=== PATIENT | female | born 1990 | race Caucasian/White ===

== ENCOUNTER 2016-11-21 14:34 | Emergency (ER) | payer OTHER, BC ==
--- NOTE | 2016-11-21 15:03 | ED ---
General Adult HPI - General Chief complaint: Dizziness Stated complaint: Near Syncope Time Seen by Provider: 11/21/16 14:43 Source: EMS, RN notes reviewed, old records reviewed Mode of arrival: EMS Limitations: no limitations - History of Present Illness Initial comments: This is a 26-year-old female year with possible hydrocarbon or monoxide exposure. Patient coming in as part of people with episode of headaches lightheadedness dizziness. Patient experienced symptoms at work, patient does work for [employer] and does have possible exposures during the shift. Patient also had 2 fellow employees who had similar symptoms. Patient is over the sinuses that she feels better, exposures an hour and a half after prior to ER arrival. Patient herself denies any other medical issues according vannesa takes no medications has no headache chest pain shortness of breath or abdominal pain, no possibility of - Related Data Home Medications Medication Instructions Recorded Confirmed Mirena 11/21/16 Allergies Allergy/AdvReac Type Severity Reaction Status Date / Time No Known Allergies Allergy Verified 11/21/16 14:42 Review of Systems ROS Statement: Those systems with pertinent positive or pertinent negative responses have been documented in the HPI. ROS Other: All systems not noted in ROS Statement are negative. Past Medical History Past Medical History: No Reported History History of Any Multi-Drug Resistant Organisms: None Reported Past Surgical History: Appendectomy Past Psychological History: No Psychological Hx Reported Smoking Status: Never smoker Past Alcohol Use History: Occasional Past Drug Use History: None Reported General Exam Limitations: no limitations General appearance: alert, in no apparent distress Head exam: Present: atraumatic, normocephalic, normal inspection Eye exam: Present: normal appearance, PERRL, EOMI. Absent: scleral icterus, conjunctival injection, periorbital swelling ENT exam: Present: normal exam, mucous membranes moist Neck exam: Present: normal inspection. Absent: tenderness, meningismus, lymphadenopathy Respiratory exam: Present: normal lung sounds bilaterally. Absent: respiratory distress, wheezes, rales, rhonchi, stridor Cardiovascular Exam: Present: regular rate, normal rhythm, normal heart sounds. Absent: systolic murmur, diastolic murmur, rubs, gallop, clicks GI/Abdominal exam: Present: soft, normal bowel sounds. Absent: distended, tenderness, guarding, rebound, rigid Extremities exam: Present: normal inspection, full ROM, normal capillary refill. Absent: tenderness, pedal edema, joint swelling, calf tenderness Back exam: Present: normal inspection Neurological exam: Present: alert, oriented X3, CN II-XII intact Psychiatric exam: Present: normal affect, normal mood Skin exam: Present: warm, dry, intact, normal color. Absent: rash Course Vital Signs 11/21/16 11/21/16 14:38 15:50 Temperature 98.2 F 97 F L Pulse Rate 76 86 Respiratory 18 20 Rate Blood Pressure 144/78 129/87 O2 Sat by Pulse 100 100 Oximetry - Reevaluation(s) Reevaluation #1: 11/21/16 15:55 Patient was placed on nonrebreather Rott nonrebreather upon arrival to emergency room, after about an hour or so on nonrebreather patient's symptoms continue to remain resolved EKG Findings - EKG Comments: EKG Findings:: G shows possible ectopic rhythm rate of 72, WA 156, QRS 98, QTc 442 Medical Decision Making - Medical Decision Making Wi-Fi female to ER for possible evaluation of hydrocarbon exposure. At this time patient's a symptomatic, chemistry discharged home and return with any symptoms, headache, shortness of breath, dizziness weakness syncope Disposition Clinical Impression: Near syncope, Toxic effect of hydrocarbon gas Disposition: HOME SELF-CARE Condition: Good Instructions: Near Syncope (ED) Referrals: Shadi Dhillon III, MD [Primary Care Provider] - 1-2 days
[2016-11-21 15:51] VITALS: BP 129/87; PULSE 86; RESP 20; TEMP 97
== END 2016-11-21 16:22 | disposition home or self-care (01) ==
LOC: EC 14:34
DX: R55 Syncope and collapse (principal); Z77.118 Contact with and (suspected) exposure to other environmental pollution; Z57.4 Occupational exposure to toxic agents in agriculture
CPT/HCPCS: 93005; 99284

== ENCOUNTER → 2018-01-25 | Outpatient (CLI) | payer BC ==
--- NOTE | 2018-01-25 12:37 | MR ---
EXAMINATION TYPE: MR brain wo con DATE OF EXAM: 01/25/2018 11:17 AM COMPARISON: NONE HISTORY: Memory loss Multiplanar and multispin-echo imaging of the brain was performed . The ventricles, basal cisterns and sulci overlying the cerebral convexities are within normal limits. There is no evidence for midline shift or mass effect. Acute intracranial hemorrhage or extra-axial collection is not evident. The brain parenchyma reveals no abnormal increased signal. No acute edema is identified. The mastoid air cells are well-aerated. Mucous retention cysts of the maxillary sinuses. IMPRESSION: Unremarkable MRI of the brain.Mucous retention cysts of the maxillary sinuses.
== END | disposition home or self-care (01) ==
LOC: RADMRIMAIN 10:37
PROVIDERS: ATTEND Psychiatry & Neurology Neurology
DX: R41.3 Other amnesia (principal)
CPT/HCPCS: 70551

== ENCOUNTER 2018-11-07 12:26 | Emergency (ER) | payer BC ==
[2018-11-07] MEDS ORDERED: ACETAMINOPHEN TAB 325 MG TAB PO STA (14:35)
--- NOTE | 2018-11-07 14:44 | ED ---
General Adult HPI - General Chief complaint: Neck Pain/Injury Stated complaint: pinched nerve Source: patient, RN notes reviewed, old records reviewed Mode of arrival: ambulatory Limitations: no limitations - History of Present Illness Initial comments: 28-year-old female patient with no pertinent past medical history presents to ED with approximately 6 months of cervical spinal pain. Patient states that this issue first began bothering her proximal 6 months ago when she has pain in her neck and numbness that radiates down her left arm. Patient was evaluated by urgent care and told that she may have a possible pinched nerve. Patient states that she received anti-inflammatories from the urgent care and her symptoms resolved until approximately 5 weeks ago. Patient states that for 5 weeks she has had achy exacerbation with pain in her neck radiates and numbness radiating down her left arm. Patient denies any fall, trauma, significant injury to her back or neck and history. Patient states that the symptoms wax and wane. Patient has a appointment with her primary care physician next week, presents to the ED primarily for symptom control. Patient denies any nuchal rigidity, patient states that the pain is not worse with movement. Patient denies headache, photophobia, fever chills. Patient denies chest pain, shortness of breath, heart palpitations, abdominal pain, nausea vomiting diarrhea. Patient does not believe that she may be because she uses control for contraception. Patient denies any other symptoms. Systemic: Pt denies fatigue, myalgia, fever/chills, rash. Pt denies weakness, night sweats, weight loss. Neuro: Pt denies headache, visual disturbances, syncope or pre-syncope. HEENT: Pt denies ocular discharge or irritation, otalgia, rhinorrhea, pharyngitis or notable lymphadenopathy. Cardiopulmonary: Pt denies chest pain, SOB, heart palpitations, dyspnea on exertion. Abdominal/GI: Pt denies abdominal pain, n/v/d. : Pt denies dysuria, burning w/ urination, frequency/urgency. Denies new onset urinary or bowel incontinence. MSK: Pt denies myalgia, loss of strength or function in extremities. Neuro: Pt denies new onset weakness. - Related Data Home Medications Medication Instructions Recorded Confirmed Mirena 11/21/16 Previous Rx's Medication Instructions Recorded Cyclobenzaprine [Flexeril] 10 mg PO TID #20 tab 11/07/18 RX: Ibuprofen [Motrin] 600 mg PO Q6HR PRN #40 day 11/07/18 Allergies Allergy/AdvReac Type Severity Reaction Status Date / Time No Known Allergies Allergy Verified 11/07/18 13:42 Review of Systems ROS Statement: Those systems with pertinent positive or pertinent negative responses have been documented in the HPI. ROS Other: All systems not noted in ROS Statement are negative. Past Medical History Past Medical History: No Reported History History of Any Multi-Drug Resistant Organisms: None Reported Past Surgical History: Appendectomy Past Psychological History: No Psychological Hx Reported Smoking Status: Never smoker Past Alcohol Use History: Occasional Past Drug Use History: None Reported General Exam - General Exam Comments Initial Comments: Constitutional: NAD, AOX3, Pt has pleasant affect. HEENT: NC/AT, trachea midline, neck supple, no lymphadenopathy. Posterior pharynx non erythematous, without exudates. External ears appear normal, without discharge. Mucous membranes moist. Eyes PERRLA, EOM intact. There is no scleral icterus. No pallor noted. Cardiopulmonary: RRR, no murmurs, rubs or gallops, no JVD noted. Lungs CTAB in anterior and posterior darling. No peripheral edema. Abdominal exam: Abdomen soft and non-distended. Abdomen non-tender to palpation in all 4 quadrants. Bowel sounds active in LLQ. No hepatosplenomegaly. No ecchymosis Neuro: CN II-XII intact. No nuchal rigidity. Kernig's and Brudzinski's negative. MSK: 5 out of 5 strength in biceps, triceps. Full active range of motion of upper extremities. Sensation intact. Radial pulse +2 bilaterally. Patient ambulatory. No posterior calf tenderness bilaterally, homans sign negative bilaterally. Posterior tibialis and radial pulse +2 bilaterally. Sensation intact in upper and lower extremities. Full active ROM in upper and lower extremities, 5/5 strength. Limitations: no limitations Course Vital Signs 11/07/18 11/07/18 13:42 15:59 Temperature 98 F 97.8 F Pulse Rate 81 67 Respiratory 16 18 Rate Blood Pressure 122/77 118/70 O2 Sat by Pulse 100 100 Oximetry Medical Decision Making - Medical Decision Making 28-year-old female patient with no pertinent past medical history presents to ED with approximately 6 months of cervical spinal pain. Patient states that this issue first began bothering her for approximately 6 months ago, when she began to experience pain in her neck and numbness that radiates down her left arm. Patient was evaluated by urgent care and told that she may have a possible pinched nerve. Patient states that she received anti-inflammatories from the urgent care and her symptoms resolved until approximately 5 weeks ago. Patient states that for 5 weeks she has had achy exacerbation with pain in her neck radiates and numbness radiating down her left arm. Patient denies any fall, trauma, significant injury to her back or neck and history. Patient states that the symptoms wax and wane. Patient has a appointment with her primary care physician next week, presents to the ED primarily for symptom control. Patient denies any nuchal rigidity, patient states that the pain is not worse with movement. Patient denies headache, photophobia, fever chills. Physical exam did not display any acute pathology. Patient upper extremities neurovascularly intact, sensation intact, 5 out of 5 strength, radial pulse +2 bilaterally. Neuro exam was within normal limits. No nuchal rigidity, Kernig' s and Brudzinski's negative. Plain film of cervical spine displayed no malignant or acute osseous abnormality seen. No bony spondylytic neural for minimal narrowing on either side. The T2 vertebral bodies visualized above the level of her clavicles. 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 Patient additionally had an EKG that was not suspicious for acute ischemia. UA was not impressive, negative hCG. These findings were explained to patient at length. Patient verbalized understanding. Patient has an appointment with her primary care physician next week which she will tend to undergo further evaluations. Patient prescribed Motrin and Flexeril from ED to control her symptoms. Patient given orthopedic referral that she may contact if symptoms persist or worsen. Case discussed with Dr. Hoskins. - Lab Data Lab Results 11/07/18 11/07/18 Range/Units 15:02 15:02 Urine Color Colorless Urine Appearance Clear (Clear) Urine pH 6.5 (5.0-8.0) Ur Specific Manning 1.006 (1.001-1.035) Urine Protein Negative (Negative) Urine Glucose (UA) Negative (Negative) Urine Ketones Negative (Negative) Urine Blood Negative (Negative) Urine Nitrite Negative (Negative) Urine Bilirubin Negative (Negative) Urine Urobilinogen <2.0 (<2.0) mg/dL Ur Leukocyte Esterase Negative (Negative) Urine HCG, Qual Not Detected (Not Detectd) - EKG Data -: EKG Interpreted by Me (and dr hoskins) EKG Comments: Normal sinus rhythm with sinus arrhythmia. Normal EKG. No concerns for acute ischemia. Disposition Clinical Impression: Cervicalgia Disposition: HOME SELF-CARE Condition: Good Instructions: Cervical Strain (ED) Additional Instructions: Patient to adhere to previously discussed treatment plan and will take medication(s) as directed. Patient to follow up with PCP in 1-2 days. Patient to return to ED if symptoms do not improve. Prescriptions: Cyclobenzaprine [Flexeril] 10 mg PO TID #20 tab RX: Ibuprofen [Motrin] 600 mg PO Q6HR PRN #40 day PRN Reason: Pain Is patient prescribed a controlled substance at d/c from ED?: No Referrals: Bel Henriquez MD [Primary Care Provider] - 1-2 days Alek Pham MD [Medical Doctor] - 1-2 days Time of Disposition: 15:50
--- NOTE | 2018-11-07 15:02 | XR ---
EXAMINATION TYPE: XR cervical spine comp DATE OF EXAM: 11/07/2018 COMPARISON: None HISTORY: 28-year-old female with left-sided cervical pain TECHNIQUE: 5 views FINDINGS: No predental space widening or prevertebral soft tissue swelling. Alignment is maintained. No bony sp ondylotic neural foraminal narrowing on either side. Normal odontoid view. No significant degenerativ e change seen. The T2 vertebral body is seen above the level of the clavicles on the lateral view. IMPRESSION: 1. No malalignment or acute osseous abnormality seen. 2. No bony spondylotic neural foraminal narrowing on either side. 3. The T2 vertebral body is visualized above the level of the clavicles. 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
[2018-11-07 15:12] LABS: Appearance,Urine Clear (Clear); Bilirubin,Urine Negative (Negative); Blood,Urine Negative (Negative); Color,Urine Colorless; Glucose,Urine (UA) Negative (Negative); Ketones,Urine Negative (Negative); Leukocyte Esterase,Urine Negative (Negative); Nitrite,Urine Negative (Negative); PH, Urine 6.5 (5.0-8.0); Protein,Urine Negative (Negative); Specific Gravity,Urine 1.006 (1.001-1.035); Urobilinogen,Urine <2.0 mg/dL (<2.0)
[2018-11-07 16:00] VITALS: BP 118/70; PULSE 67; RESP 18; TEMP 97.8
== END 2018-11-07 16:01 | disposition home or self-care (01) ==
LOC: EC 12:26
DX: M54.2 Cervicalgia (principal); R20.0 Anesthesia of skin
CPT/HCPCS: 72050; 81003; 81025; 93005; 99284